=== PATIENT | female | born 1925 | race Caucasian/White ===

== ENCOUNTER → 2016-06-17 | Outpatient (CLI) | payer BC ==
[~2016-06-17] MED LIST: ACET-1311 PO; AMLO-110 PO; ASPI81TA28 PO; CHOL100010 PO; CHOL20007 PO; CMD2 PO; CMD25 PO; COEN1CAP28 PO; CRG125 PO; CRG625 PO; CYAN100020 PO; FRS/40 PO; GLCSR750 PO; LEVO25TA5 PO; LISI20TA3 PO; LSX40 PO; MAGN400T5 PO; METF750T PO; METO2.5T PO; OXYC1TAB3 PO; POTA10TA33 PO; PRLSR20 PO; SIMV40TA2 PO; SYN25 PO; WARF-285 PO
[2016-06-17 10:17] LABS: INR 2.6 (0.9-1.1); PROTHROMBIN TIME (PATIENT) 29.2 SECONDS (9.0-12.0)
[2016-06-17 10:18] LABS: BLOOD UREA NITROGEN 15 mg/dl (7-18); BUN/CREATININE RATIO 15.2 (10-20); CARBON DIOXIDE 32 mmol/L (21-32); CHLORIDE 101 mmol/L (98-107); CHOLESTEROL 132 mg/dl (0-200); CHOLESTEROL/HDL RATIO 3.4; GLUCOSE 120 mg/dl (70-99); HDL CHOLESTEROL 39 mg/dl; LDL CHOLESTEROL CALCULATED 73 mg/dl; POTASSIUM 4.3 mmol/L (3.5-5.1); SODIUM 138 mmol/L (136-145); TRIGLYCERIDES 100 mg/dl (0-150); VERY LOW DENSITY LIPOPROT CALC 20 mg/dl
[2016-06-17 10:45] LABS: ESTIMATED AVERAGE GLUCOSE 154 mg/dl; HA1C FLAG Normal (Normal)
== END | disposition home or self-care (01) ==
LOC: C.LABFOXMH 09:29
PROVIDERS: ATTEND Internal Medicine
DX: E11.9 Type 2 diabetes mellitus without complications (principal); Z51.81 Encounter for therapeutic drug level monitoring; Z79.01 Long term (current) use of anticoagulants

== ENCOUNTER 2016-07-15 17:32 | Emergency (ER) | payer BC ==
[~2016-07-15 17:32] MED LIST changes: -ACET-1311 PO; -AMLO-110 PO; -CHOL20007 PO; -CRG625 PO; -FRS/40 PO; -LEVO25TA5 PO; -METF750T PO; -METO2.5T PO; -OXYC1TAB3 PO; -POTA10TA33 PO; -PRLSR20 PO; -WARF-285 PO
[2016-07-15 17:35] VITALS: TEMP 36.6
[2016-07-15] MEDS ORDERED: ONDANSETRON INJ 2 MG/ML 2 ML VIAL IV STA ×2 (17:49)
[2016-07-15] MEDS ORDERED: SODIUM CHLORIDE 0.9% 1000ML 1,000 ML IV STA ×2 (17:49)
[2016-07-15] MEDS ORDERED: MoRPHine SULFATE 4 MG/ML 1 ML CARP\\VIAL IV PRN (18:00)
[2016-07-15] MEDS ORDERED: AMLO-110 PO (18:25)
[2016-07-15] MEDS ORDERED: PRLSR20 PO (18:25)
[2016-07-15 18:32] LABS: BASO % 0.5 %; BASO ABS # 0.06 K/uL (0-0.2); COMPLETE YES; EOS % 1.8 %; HEMATOCRIT 34.9 % (37-47); IG% 0.2 %; LYMPH % 15.2 %; LYMPH ABS # 1.69 K/uL (1.2-3.4); MEAN CELL VOLUME 87.5 fL (80-100); MEAN CORPUSCULAR HEMOGLOBIN 30.1 pg (25-34); MEAN CORPUSCULAR HGB CONC 34.4 g/dl (32-36); MONO % 12.1 %; NEUT % 70.2 %; PLATELET COUNT 301 K/uL (130-400); RED BLOOD COUNT 3.99 M/uL (4.2-5.4)
--- NOTE | 2016-07-15 18:43 | DIAGNOSTIC IMAGING REPORT ---
KUB CLINICAL HISTORY: Generalized abdominal pain. Weakness. FINDINGS: 2 AP, portable, supine abdominal radiographs are obtained. No prior studies are available for comparison at the time of dictation. There is a nonobstructed abdominal bowel gas pattern. Mild colonic fecal retention is observed. No evidence of intraperitoneal free air is seen on these supine views. There are no abnormal abdominal calcifications. Cardiomegaly is noted. The skeletal structures are osteopenic. There is moderate lumbosacral spondylosis. Sclerotic changes are seen in the sacroiliac joints, left greater than right. IMPRESSION: Nonobstructed abdominal bowel gas pattern. Electronically signed by: Ger Moffett M.D. 07/15/2016 6:42 PM Dictated Date/Time: 07/15/2016 6:40 PM
--- NOTE | 2016-07-15 18:46 | DIAGNOSTIC IMAGING REPORT ---
SINGLE VIEW CHEST CLINICAL HISTORY: Generalized abdominal pain. Weakness. FINDINGS: An AP, portable, upright chest radiograph is compared to study dated 03/23/2015 and correlated with chest CT dated 04/13/2015. The examination is degraded by portable technique and patient rotation. The heart is enlarged and there is atherosclerotic calcification of the thoracic aorta. The pulmonary vasculature is noncongested. Chronic interstitial thickening and emphysema are similar to previous. No airspace consolidation, large pleural effusion, or pneumothorax is seen. There is minimal bibasilar atelectasis. The skeletal structures are osteopenic. The bony thorax is grossly intact. Calcific tendinopathy is noted in the left shoulder. IMPRESSION: Cardiomegaly and emphysema with no acute cardiopulmonary abnormality. Electronically signed by: Ger Moffett M.D. 07/15/2016 6:44 PM Dictated Date/Time: 07/15/2016 6:43 PM
[2016-07-15 18:49] LABS: PARTIAL THROMBOPLASTIN RATIO 1.8; PROTHROMBIN TIME (PATIENT) 67.5 SECONDS (9.0-12.0)
[2016-07-15 18:52] LABS: ALT/SGPT 40 U/L (12-78); BLOOD UREA NITROGEN 18 mg/dl (7-18); BUN/CREATININE RATIO 16.2 (10-20); CARBON DIOXIDE 24 mmol/L (21-32); CHLORIDE 100 mmol/L (98-107); GLUCOSE 115 mg/dl (70-99); POTASSIUM 3.8 mmol/L (3.5-5.1); SODIUM 136 mmol/L (136-145)
[2016-07-15 18:56] LABS: INR 5.9 (0.9-1.1)
[2016-07-15 18:57] LABS: ALKALINE PHOSPHATASE 256 U/L (45-117); AST/SGOT 50 U/L (15-37)
[2016-07-15] MEDS ORDERED: POTA10TA33 PO (19:01)
[2016-07-15] MEDS ORDERED: CRG625 PO (19:01)
[2016-07-15] MEDS ORDERED: METO2.5T PO (19:01)
[2016-07-15] MEDS ORDERED: METF750T PO (19:01)
[2016-07-15] MEDS ORDERED: WARF-285 PO (19:01)
[2016-07-15] MEDS ORDERED: LEVO25TA5 PO (19:01)
[2016-07-15] MEDS ORDERED: CHOL20007 PO (19:01)
[2016-07-15] MEDS ORDERED: FRS/40 PO (19:01)
[2016-07-15] MEDS ORDERED: ACET-1311 PO (19:02)
[2016-07-15 19:58] VITALS: O2SAT 93
--- NOTE | 2016-07-15 20:03 | DIAGNOSTIC IMAGING REPORT ---
ULTRASOUND RIGHT UPPER QUADRANT ABDOMEN CLINICAL HISTORY: Right upper quadrant abdominal pain. COMPARISON STUDY: KUB dated 07/15/2016. TECHNIQUE: Real-time, grayscale, and color flow sonography of the right upper quadrant of the abdomen was performed. Images are reviewed in the transverse and longitudinal planes. FINDINGS: Liver: The liver is normal in size and echotexture. There are numerous indeterminant mass lesions identified throughout the pancreas. The largest is in the right lobe and measures up to 6.3 cm. Additional cystic foci are noted within the liver. There is no intrahepatic biliary ductal dilatation. The main portal vein is patent. Gallbladder: The gallbladder is normal in appearance. No gallstones are identified. There is no gallbladder wall thickening or pericholecystic fluid. A sonographic Becerra's sign is reportedly absent. The common bile duct measures up to 0.4 cm in diameter. Pancreas: Visualized portions of the pancreatic head and body appear atrophic. Cystic foci are identified in the pancreatic body and tail. Some of this could represent the pancreatic duct. The splenic vein is patent. A peripancreatic/tamy hepatic lymph node is suggested measuring up to 3.0 cm. Right kidney: Survey images of the right kidney show cortical atrophy. A 2.2 cm cyst is noted in the interpolar region. There is no hydronephrosis. Ascites: None. IMPRESSION: 1. The gallbladder is normal in appearance. No gallstones are identified. 2. There are several indeterminant hepatic mass lesions identified measuring up to 6.3 cm. Metastatic disease of the diagnosis of exclusion. Follow-up with a contrast-enhanced abdominal CT is recommended. 3. An enlarged lymph node is identified in the tamy hepatic region. 4. The pancreas is not well visualized but appears abnormal, with several cystic foci identified. This should also be further assessed with abdominal CT. Electronically signed by: Ger Moffett M.D. 07/15/2016 8:02 PM Dictated Date/Time: 07/15/2016 7:57 PM
[2016-07-15] MEDS ORDERED: OPTIRAY 320 IV PRN (20:30)
[2016-07-15 23:09] LABS: URINE APPEARANCE CLEAR (CLEAR); URINE BILIRUBIN NEG (NEG); URINE COLOR YELLOW; URINE EPITHELIAL CELL AUTO 20-30 /lpf (0-5); URINE NITRITE NEG (NEG); URINE SPECIFIC GRAVITY 1.013 (1.000-1.030); UROBILINOGEN NEG (NEG)
[2016-07-15 23:10] LABS: MANUAL MICROSCOPIC REQUIRED? NO; REVIEW REQ? NO
[2016-07-16] MEDS ORDERED: ONDANSETRON HOME PACK 4MG OD TAB PO ONE (01:15)
[2016-07-16] MEDS ORDERED: OXYCODONE IR HOME PACK PO ONE (01:15)
[2016-07-16] MEDS ORDERED: OXYC1TAB3 PO (01:16)
--- NOTE | 2016-07-16 01:32 | EMERGENCY ROOM VISIT NOTE ---
History Report prepared by Dagmar: Megan Espinoza Under the Supervision of: Dr. Dick Clark D.O. First contact with patient: 17:42 Chief Complaint: ABDOMINAL PAIN Stated Complaint: WEAK, ABD PAIN, REFERRED BY History of Present Illness The patient is an 89 year old female who presents to the Emergency Room via with complaints of worsening right-sided abdominal pain with onset one morning ago. She was referred to the ED by her PCP as he suspected an issue with the patient's gallbladder. The pain becomes intermittently worse with movement, and she describes that deep breathing worsens the pain. She describes that the pain radiates through to her back. Today, the patient did not take anything for the pain. Per patient, holding her breath makes the pain better. She denies nausea, vomiting, rectal bleeding, blood in her urine, darker urine, any differences in bowel movements, rash, pain in her legs, swelling in her legs , chest pain, difficulty breathing. The patient has a history of appendectomy. She denies a history of kidney stones. Source of History: patient Onset: one morning ago Position: abdomen Quality: other (abdominal pain) Timing: worsening Modifying Factors (Worsening): breathing, movement Modifying Factors (Relieving): other Associated Symptoms: + back pain, No SOB, No chest pain, No fevers, No rash , No urinary symptoms, No vomiting Note: She denies rectal bleeding, blood in her urine, darker urine, any differences in bowel movements, pain in her legs, swelling in her legs. Review of Systems See HPI for pertinent positives & negatives. A total of 10 systems reviewed and were otherwise negative. 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 Surgical Problems: (1) H/O section (2) S/P appendectomy (3) S/P tonsillectomy Family History Diabetes mellitus Hypertension No significant family history Social History Smoking Status: Never Smoker Alcohol Use: occasionally Marital Status: Housing Status: lives with family Occupation Status: retired Current/Historical Medications Scheduled Amlodipine (Norvasc), 5 MG PO DAILY Aspirin (Aspirin Ec), 81 MG PO DAILY Carvedilol (Carvedilol), 6.25 MG PO BID Cholecalciferol (Vitamin D3), 1 TAB PO DAILY Coenzyme Q10 (Ubidecarenone) (Co Q10), 200 MG PO DAILY Cyanocobalamin (Vitamin B12), 1 TAB PO DAILY Furosemide (Lasix), 60 MG PO DAILY Levothyroxine Sodium (Levothyroxine Sodium), 25 MCG PO DAILY Lisinopril (Prinivil), 20 MG PO DAILY Magnesium Oxide (Mag-Ox), 400 MG PO DAILY Metformin Hcl (Glucophage Er), 750 MG PO BID Metolazone (Zaroxolyn), 2.5 MG PO DAILY Omeprazole (Prilosec), 20 MG PO DAILY Potassium Chloride (Potassium Chloride Sr), 10 MEQ PO DAILY Simvastatin (Zocor), 40 MG PO QPM Warfarin Sodium (Warfarin Sodium), 3 MG PO UD Scheduled PRN Acetaminophen (Tylenol), 650 MG PO Q4 PRN for Headache or Pain Oxycodone Immediate Rel Tab (Roxicodone Ir), 1-2 TAB PO Q4H PRN for Severe Pain Allergies Coded Allergies: Hydrocodone (Unverified Adverse Reaction, Intermediate, drowsiness, loss of balance, fuzzy thinking, 04/13/15) Physical Exam Vital Signs Date Time Temp Pulse Resp B/P Pulse Ox O2 Delivery O2 Flow Rate FiO2 07/16/16 01:17 84 07/15/16 23:41 83 18 106/61 94 Room Air 07/15/16 21:59 97 07/15/16 21:42 93 18 101/79 93 Nasal Cannula 2.0 07/15/16 19:58 93 Nasal Cannula 2.0 07/15/16 19:57 101 15 115/75 93 Nasal Cannula 2.0 07/15/16 19:54 88 Room Air 07/15/16 18:15 92 23 114/94 92 Room Air 07/15/16 18:02 94 07/15/16 17:35 36.6 94 20 136/83 94 Physical Exam GENERAL: Patient is awake, alert, and in no acute distress. Patient is resting comfortably and showing no signs of anxiety EYES: The conjunctivae are clear. The pupils are round and reactive. EARS, NOSE, MOUTH AND THROAT: The nose is without any evidence of any deformity. Mucous membranes are moist tongue is midline NECK: The neck is nontender and supple. RESPIRATORY: Normal respiratory effort is noted there is no evidence of wheezing rhonchi or rales CARDIOVASCULAR: Regular rate and rhythm noted, systolic murmur was appreciated , no rubs or gallops normal S1 normal S2 GASTROINTESTINAL: The abdomen is mildly distended but soft, right upper quadrant tenderness to palpation, guarding in the right upper quadrant. Bowel sounds are present in all quadrants. MUSCULOSKELETAL/EXTREMITIES: There is no evidence of gross deformity full range of motion is noted in the hips and shoulders SKIN: There is no obvious evidence of any rash. There are no petechiae, pallor or cyanosis noted. NEUROLOGIC: Patient is awake alert and oriented x3. Medical Decision & Procedures ER Provider Diagnostic Interpretation: X ray results and stated below per my interpretation and radiology interpretation. Other radiology results per my review and radiologist interpretation: KUB CLINICAL HISTORY: Generalized abdominal pain. Weakness. FINDINGS: 2 AP, portable, supine abdominal radiographs are obtained. No prior studies are available for comparison at the time of dictation. There is a nonobstructed abdominal bowel gas pattern. Mild colonic fecal retention is observed. No evidence of intraperitoneal free air is seen on these supine views. There are no abnormal abdominal calcifications. Cardiomegaly is noted. The skeletal structures are osteopenic. There is moderate lumbosacral spondylosis. Sclerotic changes are seen in the sacroiliac joints, left greater than right. IMPRESSION: Nonobstructed abdominal bowel gas pattern. Electronically signed by: Ger Moffett M.D. 07/15/2016 6:42 PM Dictated Date/Time: 07/15/2016 6:40 PM SINGLE VIEW CHEST CLINICAL HISTORY: Generalized abdominal pain. Weakness. FINDINGS: An AP, portable, upright chest radiograph is compared to study dated 03/23/2015 and correlated with chest CT dated 04/13/2015. The examination is degraded by portable technique and patient rotation. The heart is enlarged and there is atherosclerotic calcification of the thoracic aorta. The pulmonary vasculature is noncongested. Chronic interstitial thickening and emphysema are similar to previous. No airspace consolidation, large pleural effusion, or pneumothorax is seen. There is minimal bibasilar atelectasis. The skeletal structures are osteopenic. The bony thorax is grossly intact. Calcific tendinopathy is noted in the left shoulder. IMPRESSION: Cardiomegaly and emphysema with no acute cardiopulmonary abnormality. Electronically signed by: Ger Moffett M.D. 07/15/2016 6:44 PM Dictated Date/Time: 07/15/2016 6:43 PM ULTRASOUND RIGHT UPPER QUADRANT ABDOMEN CLINICAL HISTORY: Right upper quadrant abdominal pain. COMPARISON STUDY: KUB dated 07/15/2016. TECHNIQUE: Real-time, grayscale, and color flow sonography of the right upper quadrant of the abdomen was performed. Images are reviewed in the transverse and longitudinal planes. FINDINGS: Liver: The liver is normal in size and echotexture. There are numerous indeterminant mass lesions identified throughout the pancreas. The largest is in the right lobe and measures up to 6.3 cm. Additional cystic foci are noted within the liver. There is no intrahepatic biliary ductal dilatation. The main portal vein is patent. Gallbladder: The gallbladder is normal in appearance. No gallstones are identified. There is no gallbladder wall thickening or pericholecystic fluid. A sonographic Becerra's sign is reportedly absent. The common bile duct measures up to 0.4 cm in diameter. Pancreas: Visualized portions of the pancreatic head and body appear atrophic. Cystic foci are identified in the pancreatic body and tail. Some of this could represent the pancreatic duct. The splenic vein is patent. A peripancreatic/tamy hepatic lymph node is suggested measuring up to 3.0 cm. Right kidney: Survey images of the right kidney show cortical atrophy. A 2.2 cm cyst is noted in the interpolar region. There is no hydronephrosis. Ascites: None. IMPRESSION: 1. The gallbladder is normal in appearance. No gallstones are identified. 2. There are several indeterminant hepatic mass lesions identified measuring up to 6.3 cm. Metastatic disease of the diagnosis of exclusion. Follow-up with a contrast-enhanced abdominal CT is recommended. 3. An enlarged lymph node is identified in the tamy hepatic region. 4. The pancreas is not well visualized but appears abnormal, with several cystic foci identified. This should also be further assessed with abdominal CT. Electronically signed by: Ger Moffett M.D. 07/15/2016 8:02 PM Dictated Date/Time: 07/15/2016 7:[address] Chest with Contrast: No central pulmonary embolus. Cardiomegaly. Hepatic metastasis. Cystic lesion replacing the pancreas. Small nodule and septated tissues in the back. Radiologist: Aime Valdovinos MD. CT Abdomen and Pelvis: Numerous heterogeneous mass lesions in the liver, worrisome for metastasis. Cystic structures replacing the pancreas, worrisome for underlying neoplastic process. Peripancreatic noelle lesions. Right renal cyst. Too small to characterize low attenuation foci in the kidneys. Colonic diverticula without diverticulitis. Cardiomegaly. Radiologist: Aime Read MD. Laboratory Results 07/15/16 18:15 Red Blood Count 3.99, Mean Corpuscular Volume 87.5, Mean Corpuscular Hemoglobin 30.1, Mean Corpuscular Hemoglobin Concent 34.4, Mean Platelet Volume 10.0, Neutrophils (%) (Auto) 70.2, Lymphocytes (%) (Auto) 15.2, Monocytes (%) (Auto) 12.1, Eosinophils (%) (Auto) 1.8, Basophils (%) (Auto) 0.5, Neutrophils # (Auto ) 7.79, Lymphocytes # (Auto) 1.69, Monocytes # (Auto) 1.34, Eosinophils # (Auto ) 0.20, Basophils # (Auto) 0.06 07/15/16 18:15 Test 07/15/16 18:15 07/15/16 22:55 White Blood Count 11.10 K/uL (4.8-10.8) Red Blood Count 3.99 M/uL (4.2-5.4) Hemoglobin 12.0 g/dL (12.0-16.0) Hematocrit 34.9 % (37-47) Mean Corpuscular Volume 87.5 fL (80-100) Mean Corpuscular Hemoglobin 30.1 pg (25-34) Mean Corpuscular Hemoglobin Concent 34.4 g/dl (32-36) Platelet Count 301 K/uL (130-400) Mean Platelet Volume 10.0 fL (7.4-10.4) Neutrophils (%) (Auto) 70.2 % Lymphocytes (%) (Auto) 15.2 % Monocytes (%) (Auto) 12.1 % Eosinophils (%) (Auto) 1.8 % Basophils (%) (Auto) 0.5 % Neutrophils # (Auto) 7.79 K/uL (1.4-6.5) Lymphocytes # (Auto) 1.69 K/uL (1.2-3.4) Monocytes # (Auto) 1.34 K/uL (0.11-0.59) Eosinophils # (Auto) 0.20 K/uL (0-0.5) Basophils # (Auto) 0.06 K/uL (0-0.2) RDW Standard Deviation 53.8 fL (36.4-46.3) RDW Coefficient of Variation 16.7 % (11.5-14.5) Immature Granulocyte % (Auto) 0.2 % Immature Granulocyte # (Auto) 0.02 K/uL (0.00-0.02) Prothrombin Time 67.5 SECONDS (9.0-12.0) Prothromb Time International Ratio 5.9 (0.9-1.1) Activated Partial Thromboplast Time 46.8 SECONDS (21.0-31.0) Partial Thromboplastin Ratio 1.8 Anion Gap 12.0 mmol/L (3-11) Estimated GFR () 51.9 Estimated GFR (Non- 44.8 BUN/Creatinine Ratio 16.2 (10-20) Calcium Level 9.0 mg/dl (8.5-10.1) Total Bilirubin 0.7 mg/dl (0.2-1) Direct Bilirubin 0.2 mg/dl (0-0.2) Aspartate Amino Transf (AST/SGOT) 50 U/L (15-37) Alanine Aminotransferase (ALT/SGPT) 40 U/L (12-78) Alkaline Phosphatase 256 U/L (45-117) Total Creatine Kinase 60 U/L (26-192) Creatine Kinase MB 0.6 ng/ml (0.5-3.6) Creatine Kinase MB Ratio 1.0 (0-3.0) Troponin I < 0.015 ng/ml (0-0.045) Total Protein 7.7 gm/dl (6.4-8.2) Albumin 3.2 gm/dl (3.4-5.0) Lipase 160 U/L (73-393) Urine Color YELLOW Urine Appearance CLEAR (CLEAR) Urine pH 5.0 (4.5-7.5) Urine Specific [place] 1.013 (1.000-1.030) Urine Protein NEG (NEG) Urine Glucose (UA) NEG (NEG) Urine Ketones NEG (NEG) Urine Occult Blood TRACE (NEG) Urine Nitrite NEG (NEG) Urine Bilirubin NEG (NEG) Urine Urobilinogen NEG (NEG) Urine Leukocyte Esterase TRACE (NEG) Urine WBC (Auto) 1-5 /hpf (0-5) Urine RBC (Auto) 0-4 /hpf (0-4) Urine Hyaline Casts (Auto) 1-5 /lpf (0-5) Urine Epithelial Cells (Auto) 20-30 /lpf (0-5) Urine Bacteria (Auto) NEG (NEG) Laboratory results per my review. Medications Administered Medications (Trade) Dose Ordered Sig/Mackenzie Route Start Time Stop Time Status Last Admin Dose Admin Ondansetron HCl (Zofran Inj) 4 mg NOW STAT IV 07/15/16 17:49 07/15/16 17:52 DC 07/15/16 18:26 4 MG Morphine Sulfate 4 mg 4 mg Q15M PRN IV 07/15/16 18:00 07/29/16 17:59 07/15/16 18:26 4 MG Sodium Chloride (Nss 1000ml) 1,000 ml @ 125 mls/hr Q8H STAT IV 07/15/16 17:49 07/16/16 01:48 07/15/16 18:26 125 MLS/HR ECG Indication: abdominal pain Rate (beats per minute): 93 Rhythm: atrial fibrillation Findings: ST depression (diffuse), other (low voltage noted throughout ) Comparison ECG Date: April 13, 2015 Change: no significant change ED Course 174: The patient was evaluated in room B11. A complete history and physical examination were performed. 1748: NSS 1,000 ml @ 125 mls/hr IV, Zofran 4 mg IV 1800: Morphine Sulfate 4 mg IV 2015: I reevaluated the patient and updated her on the lab results. 0005: I reevaluated the patient and informed her of the imaging results. 0035: I discussed the case with Dr. Sears ([facility]); he will further evaluate the patient. 0111: I discussed the case further with Dr. Sears; he relates that the patient would like to go home. Medical Decision Differential diagnosis: Etiologies such as appendicitis, diverticulitis, PUD, biliary pathology, UTI, pancreatitis, obstruction, mesenteric ischemia, aortic pathology, infections, inflammatory bowel disease, renal colic, as well as others were entertained. Nursing notes reviewed. The patient is an 89-year-old female who presented to the emergency department for an evaluation of her pain. The patient was seen by her primary care physician and sent to the emergency department for possible gallbladder problems. The patient did have reproducible right upper quadrant abdominal pain. Ultrasound instead showed signs of possible metastatic disease to the liver and a CAT scan was recommended. I discussed the patient's laboratory radiographic studies with her. She was treated with IV fluids IV pain medicine and IV antiemetics in the emergency department. On subsequent reevaluation she was resting comfortably. It does at this time because of the patient may have a primary pancreatic mass which has metastasized to liver. The patient was evaluated by the [facility] hospitalist in the emergency department. I discussed the patient's laboratory and radiographic studies with her. She is aware the diagnosis that is most likely at this time. All totally the patient requested to be discharged home so she can follow-up with her primary care physician first and then obtain a referral through oncology to determine her course of action could be. She was also encouraged to rest and avoid any strenuous activity. She was encouraged to continue all medications as prescribed and call her primary care physician morning. She was also encouraged return to emergency apartment immediately if symptoms change worsen or the need arises. Consults Time Called: 29 Consulting Physician: Dr. Sears ([facility]) Returned Call: [phone] I discussed the case with Dr. Sears ([facility]); he will further evaluate the patient. Impression Primary Impression: Right upper quadrant abdominal pain Additional Impressions: Pancreatic mass Metastatic disease Scribe Attestation The scribe's documentation has been prepared under my direction and personally reviewed by me in its entirety. I confirm that the note above accurately reflects all work, treatment, procedures, and medical decision making performed by me. Departure Information Dispostion Home / Self-Care Prescriptions Oxycodone Immediate Rel Tab (ROXICODONE IR) 5 Mg Tab 1-2 TAB PO Q4H Y for Severe Pain, #24 TAB Prov: Dick Clark DO 07/16/16 Referrals Dave Saldana M.D. (PCP) Forms HOME CARE DOCUMENTATION FORM, IMPORTANT VISIT INFORMATION Patient Instructions [facility] Additional Instructions Follow-up with your family Dr. braxton this morning. Set up a follow-up appointment with the oncologist. Drink plenty clear liquids. Continue all medications as prescribed. Return to the emergency apartment immediately if symptoms change worsen or if the need arises. Problem Qualifiers
[2016-07-16 01:35] VITALS: BP 142/77; PULSE 78; O2SAT 94
--- NOTE | 2016-07-16 06:04 | DIAGNOSTIC IMAGING REPORT ---
CHEST CT WITH CONTRAST CT DOSE: 855.72 mGy.cm HISTORY: Chest pain right CP TECHNIQUE: Multiaxial CT images of the chest were performed following the intravenous administration of contrast. COMPARISON: 04/13/2015 FINDINGS: Study is negative for pulmonary embolus. Pulmonary vasculature enhances appropriately. Moderate atherosclerotic change thoracic aorta. Diffuse hepatic metastatic disease. This is progressive and/or interval compared to the prior exam. Diffuse distention of the pancreatic duct aggressive the prior study. Potential exophytic cystic lesion mid pancreatic body. Also progressive. Cortical scarring of both kidneys. IMPRESSION: 1. Study is negative for pulmonary embolus. 2. Diffuse hepatic metastatic change. 3. Dilatation of the pancreatic duct with a cystic lesion pancreatic body progressively prior study Electronically signed by: Maksim Lacey M.D. 07/16/2016 6:03 AM Dictated Date/Time: 07/16/2016 5:48 AM
--- NOTE | 2016-07-16 07:47 | DIAGNOSTIC IMAGING REPORT ---
ABDOMEN AND PELVIS CT WITH IV AND ORAL CONTRAST CT DOSE: HISTORY: Pain. Nausea. abnormal US, RUQ pain TECHNIQUE: Multiaxial CT images of the abdomen and pelvis were performed following the use of intravenous and oral contrast. COMPARISON STUDY: None. FINDINGS: Lung bases are clear. Minimal dependent basilar atelectasis. Findings of diffuse hepatic metastatic disease. Largest metastatic deposit measures 7 cm in the right pedicle with multiple additional significant deposits throughout both hepatic lobes. Potential blastic lesion posterior right 10th rib. Cystic lesion mid pancreas with several additional necrotic peripancreatic nodes. Probable distention of the pancreatic duct is made to distal aspect. Liver is uniform throughout. 2 cm right renal cyst. Mild cortical scarring of the kidneys bilaterally. Bowel pattern overall is nonobstructive. Postoperative changes to the stomach which of been previously described. Chronic sigmoid diverticulosis. No evidence for acute diverticulitis. IMPRESSION: 1. Probable neoplastic change of the pancreas with fatty replacement and significant distention of the mid to distal pancreatic duct. 2. Interval development of diffuse hepatic metastatic disease. 3. Possible blastic metastatic focus posterior right 10th rib. 4. Chronic sigmoid diverticulosis with no evidence for acute diverticulitis. Electronically signed by: Maksim Lacey M.D. 07/16/2016 7:46 AM Dictated Date/Time: 07/16/2016 7:41 AM
== END 2016-07-16 01:35 | disposition home or self-care (01) ==
LOC: C.EDB 17:35
DX: R10.11 Right upper quadrant pain (principal); K86.89 Other specified diseases of pancreas; C79.9 Secondary malignant neoplasm of unspecified site; I48.91 Unspecified atrial fibrillation; E78.00 Pure hypercholesterolemia, unspecified; E03.9 Hypothyroidism, unspecified; E11.9 Type 2 diabetes mellitus without complications; K21.0 Gastro-esophageal reflux disease with esophagitis; Z79.82 Long term (current) use of aspirin; Z79.01 Long term (current) use of anticoagulants; Z51.81 Encounter for therapeutic drug level monitoring

== ENCOUNTER → 2016-07-15 | Outpatient (CLI) | payer BC ==
[2016-07-15 08:44] LABS: PROTHROMBIN TIME (PATIENT) 54.6 SECONDS (9.0-12.0)
[2016-07-15 08:47] LABS: INR 4.8 (0.9-1.1)
== END | disposition home or self-care (01) ==
LOC: C.LABFOXMH 08:20
PROVIDERS: ATTEND Internal Medicine
DX: Z51.81 Encounter for therapeutic drug level monitoring (principal); Z79.01 Long term (current) use of anticoagulants

== ENCOUNTER → 2016-07-18 | Outpatient (CLI) | payer BC ==
[~2016-07-18] MED LIST changes: +ACET-1311 PO; +AMLO-110 PO; -CHOL100010 PO; +CHOL20007 PO; -CMD2 PO; -CMD25 PO; -CRG125 PO; +CRG625 PO; +FRS/40 PO; -GLCSR750 PO; +LEVO25TA5 PO; -LSX40 PO; +METF750T PO; +METO2.5T PO; +OXYC1TAB3 PO; +POTA10TA33 PO; +PRLSR20 PO; -SYN25 PO; +WARF-285 PO
== END ==
LOC: C.LABFOXMH 07:48
PROVIDERS: ATTEND Internal Medicine
DX: K86.89 Other specified diseases of pancreas (principal)

== ENCOUNTER → 2016-07-21 | Outpatient (CLI) | payer BC ==
[2016-07-21 10:26] LABS: PROTHROMBIN TIME (PATIENT) 40.7 SECONDS (9.0-12.0)
[2016-07-21 10:31] LABS: INR 3.6 (0.9-1.1)
== END | disposition home or self-care (01) ==
LOC: C.LABFOXMH 09:21
PROVIDERS: ATTEND Internal Medicine
DX: Z51.81 Encounter for therapeutic drug level monitoring (principal); Z79.01 Long term (current) use of anticoagulants; C25.1 Malignant neoplasm of body of pancreas; D05.90 Unspecified type of carcinoma in situ of unspecified breast

== ENCOUNTER → 2016-07-24 | Outpatient (CLI) | payer BC ==
[2016-07-24 10:47] LABS: INR 2.1 (0.9-1.1); PROTHROMBIN TIME (PATIENT) 23.1 SECONDS (9.0-12.0)
== END | disposition home or self-care (01) ==
LOC: C.LABFOXMH 08:56
PROVIDERS: ATTEND Internal Medicine
DX: Z51.81 Encounter for therapeutic drug level monitoring (principal); Z79.01 Long term (current) use of anticoagulants

== ENCOUNTER → 2016-09-17 | Outpatient (CLI) | payer BC ==
[2016-09-17 09:24] LABS: HEMATOCRIT 30.7 % (37-47); MEAN CORPUSCULAR HEMOGLOBIN 29.6 pg (25-34); MEAN CORPUSCULAR HGB CONC 33.2 g/dl (32-36); MEAN PLATELET VOLUME 12.1 fL (7.4-10.4); PLATELET COUNT 322 K/uL (130-400); RED BLOOD COUNT 3.45 M/uL (4.2-5.4); WHITE BLOOD COUNT 10.01 K/uL (4.8-10.8)
[2016-09-17 09:33] LABS: ALT/SGPT 18 U/L (12-78); BLOOD UREA NITROGEN 13 mg/dl (7-18); BUN/CREATININE RATIO 16.5 (10-20); CALCIUM 8.8 mg/dl (8.5-10.1); CARBON DIOXIDE 28 mmol/L (21-32); CHLORIDE 97 mmol/L (98-107); GLUCOSE 99 mg/dl (70-99); POTASSIUM 4.1 mmol/L (3.5-5.1); SODIUM 135 mmol/L (136-145)
[2016-09-17 09:36] LABS: ALB/GLOB RATIO 0.6 (0.9-2); ALKALINE PHOSPHATASE 336 U/L (45-117); AST/SGOT 24 U/L (15-37)
== END | disposition home or self-care (01) ==
LOC: C.LABFOXMH 08:50
PROVIDERS: ATTEND Internal Medicine
DX: I50.40 Unspecified combined systolic (congestive) and diastolic (congestive) heart failure (principal)

== ENCOUNTER → 2016-10-30 | Outpatient (CLI) | payer OTHER, BC | END | disposition home or self-care (01) | LOC: C.LABFOXMH 14:59 | PROVIDERS: ATTEND Internal Medicine | DX: R30.0 Dysuria (principal) ==